=== PATIENT | male | born 1980 | race Caucasian/White ===

== ENCOUNTER 2017-11-27 17:03 | Emergency (ER) | payer OTHER ==
[~2017-11-27] VITALS: Ht 165.1 cm; Wt 72.6 kg
[~2017-11-27 17:03] MED LIST: ALBU90OI INH; ALBU90OI61 INH; AZIT250 PO; CEPH500 PO; CRUTCH3 USE; DIPATR PO; DOXY100 PO; HYDACE5 PO; IBUP600 PO; IBUP800 PO; METO10 PO; METPRE4DP PO; Motrin600 MG PO; Norco 5-325 Ta1 EACH PO; ONDA4ODT MM; PENVK500 PO; PHENY100ER PO; PROACE100 PO; PROM25 PO; RANI150 PO; RXHYDACE PO; RXPROM25 PO
[2018-10-30] MEDS ORDERED: CYCL10 PO (18:06)
[2018-10-30] MEDS ORDERED: KETO10 PO (18:06)
[2018-10-30] MEDS ORDERED: Zofran Odt4 MG SL (18:08)
== END 2017-11-27 19:01 | disposition home or self-care (01) ==
LOC: ER 17:03
DX: M25.512 Pain in left shoulder (principal); J45.909 Unspecified asthma, uncomplicated; Z88.5 Allergy status to narcotic agent
CPT/HCPCS: 73030; 99283

== ENCOUNTER 2018-02-10 13:04 | Emergency (ER) | payer OTHER ==
[~2018-02-10] VITALS: Ht 160 cm; Wt 72.6 kg
[2018-02-10 15:00] LABS: Calcium, Ionized (POC) 1.17 mmol/L (1.10-1.46); Chloride (POC) 104 mmol/L (98-108); Glucose (ISTAT POC) 80 mg/dL (70-99); Sodium (POC) 143 mmol/L (135-148); Total CO2 (POC) 27 mmol/L (21-32)
[2018-02-10 15:11] LABS: Source, Urine Clean Catch
[2018-02-10 15:14] LABS: Appearance, Urine Cloudy (Clear); Bilirubin, Urine Neg (Neg); Blood, Urine Neg (Neg); Color, Urine Yellow (P-Yellow); Glucose Qualitative, Urine Neg (Neg); Ketones, Urine Neg (Neg); Leukocyte Esterase, Urine 1+ (Neg); Nitrite, Urine Neg (Neg); Protein, Urine 1+ (Neg); Specific Gravity, Urine 1.015 (1.003-1.022); Urobilinogen, Urine NORM (Normal)
[2018-02-10 15:19] LABS: Amorphous Heavy (0-Heavy); Bacteria Mod /hpf; Red Blood Cells, Urine 0-2 /hpf (0-2); Squamous Epithelial Cells Not Seen /hpf (Few)
[2018-10-30] MEDS ORDERED: KETO10 PO (18:06)
[2018-10-30] MEDS ORDERED: CYCL10 PO (18:06)
[2018-10-30] MEDS ORDERED: Zofran Odt4 MG SL (18:08)
== END 2018-02-10 16:16 | disposition left against medical advice (07) ==
LOC: ER 13:04
PROVIDERS: Physician Assistant
DX: Z53.21 Procedure and treatment not carried out due to patient leaving prior to being seen by health care provider (principal)
CPT/HCPCS: 36415; 80047; 81001; 85014; 87086; 99283

== ENCOUNTER 2018-07-15 04:32 | Emergency (ER) | payer OTHER ==
[~2018-07-15] VITALS: Ht 160 cm; Wt 74.8 kg
[2018-07-15] MEDS ORDERED: Norco 5-325 Ta1 EACH PO (06:31)
[2018-07-15] MEDS ORDERED: IBUP600 PO (06:31)
== END 2018-07-15 07:02 | disposition home or self-care (01) ==
LOC: ER 04:32
DX: S30.1XXA Contusion of abdominal wall, initial encounter (principal); S29.9XXA Unspecified injury of thorax, initial encounter; J45.909 Unspecified asthma, uncomplicated; Z88.5 Allergy status to narcotic agent; Z91.041 Radiographic dye allergy status; V86.99XA Unspecified occupant of other special all-terrain or other off-road motor vehicle injured in nontraffic accident, initial encounter
CPT/HCPCS: 71250; 74176; 99283-25; J2405; J3010

== ENCOUNTER 2018-11-16 23:32 | Emergency (ER) | payer OTHER ==
[~2018-11-16] VITALS: Ht 165.1 cm; Wt 77.1 kg
[~2018-11-16 23:32] MED LIST changes: +CYCL10 PO; +KETO10 PO; +Zofran Odt4 MG SL
[2018-11-17] MEDS ORDERED: Voltaren100 GM TOP (02:44)
[2018-11-17] MEDS ORDERED: Ultram50 MG PO (02:45)
== END 2018-11-17 03:01 | disposition home or self-care (01) ==
LOC: ER 23:32
DX: M62.838 Other muscle spasm (principal); M54.12 Radiculopathy, cervical region; J45.909 Unspecified asthma, uncomplicated; Z91.041 Radiographic dye allergy status; Z88.5 Allergy status to narcotic agent
CPT/HCPCS: 72125; 99283-25; J1885

== ENCOUNTER 2019-07-02 13:05 | Emergency (ER) | payer OTHER ==
[~2019-07-02] VITALS: Ht 162.6 cm; Wt 77.1 kg
[~2019-07-02 13:05] MED LIST changes: +Ultram50 MG PO; +Voltaren100 GM TOP
== END 2019-07-02 13:42 | disposition home or self-care (01) ==
LOC: ER 13:05
DX: S61.212A Laceration without foreign body of right middle finger without damage to nail, initial encounter (principal); W22.8XXA Striking against or struck by other objects, initial encounter; Z91.041 Radiographic dye allergy status; Z88.5 Allergy status to narcotic agent
CPT/HCPCS: 12001; 99282-25